=== PATIENT | female | born 1950 | race Caucasian/White ===

== ENCOUNTER 2024-03-17 17:36 | Emergency (ER) | payer BC, MEDICARE ==
[2024-03-17] MEDS ORDERED: Sodium Chloride 0.9% 10 ML Syringe FLUSH PRN (18:02)
[2024-03-17 18:25] LABS: HEMOGLOBIN 13.1 g/dL (11.5-16.5); MEAN CORPUSCULAR HEMOGLOBIN 29.1 pg (27.0-32.0); MEAN CORPUSCULAR HGB CONC 33.6 g/dL (31.0-35.0); MEAN PLATELET VOLUME 11.7 fL (6.0-10.0); RED BLOOD CELL COUNT 4.5 M/uL (3.80-5.80); RED CELL DISTRIBUTION WIDTH 13.4 % (11.0-16.0); WHITE BLOOD CELL COUNT,WBC 5.5 K/uL (4.0-11.0)
[2024-03-17 18:39] LABS: ALBUMIN 3.6 g/dL (3.4-5.0); ANION GAP 9.7 mmol/L (5.0-15.0); BILIRUBIN TOTAL 0.6 mg/dL (0.0-1.0); BUN/CREATININE RATIO 20.3 (6-25); CALCIUM 8.9 mg/dL (8.5-10.1); CREATININE 0.79 mg/dL (0.55-1.02); EST CRCL DRUG DOSING (CG) 59.37 mL/min; MAGNESIUM 1.7 mg/dL (1.8-2.4); PHOSPHORUS 3.8 mg/dL (2.5-4.9); POTASSIUM,K 3.7 mmol/L (3.5-5.1); PROTEIN TOTAL,TP 7.2 g/dL (6.4-8.2); TROPONIN I HIGH SENSITIVITY 18.1 pg/ml (<=60.4)
[2024-03-17 18:41] LABS: HEMOGLOBIN A1C 6.9 % (< 5.7)
== END 2024-03-17 19:05 | disposition home or self-care (01) ==
LOC: LB.ED 17:36
DX: E10.65 Type 1 diabetes mellitus with hyperglycemia (principal); Z79.899 Other long term (current) drug therapy; Z88.8 Allergy status to other drugs, medicaments and biological substances; Z96.41 Presence of insulin pump (external) (internal)
CPT/HCPCS: 36415; 80053; 82947; 83036; 83735; 84100; 84484; 85027; 99285; A0425; A0429; 99284